=== PATIENT | male | born 1960 | race Caucasian/White ===

== ENCOUNTER 2023-12-15 08:27 | Emergency (ER) | payer OTHER ==
[~2023-12-15] VITALS: Ht 177.8 cm; Wt 81.8 kg
[2023-12-15] MEDS ORDERED: NAPR-746 PO (09:07)
[2023-12-15] MEDS ORDERED: AMOX500T86 PO (09:07)
[2023-12-15 09:14] VITALS: BP 133/83; PULSE 98; RESP 18; TEMP 98.5; O2SAT 97
== END 2023-12-15 09:21 | disposition home or self-care (01) ==
LOC: ER 08:27
DX: S50.812A Abrasion of left forearm, initial encounter (principal); W55.03XA Scratched by cat, initial encounter; Y93.89 Activity, other specified; Y92.89 Other specified places as the place of occurrence of the external cause; Y99.8 Other external cause status